=== PATIENT | male | born 1945 | race Caucasian/White ===

== ENCOUNTER 2017-07-26 12:28 | Outpatient (CLI) | payer MEDICARE, BC ==
--- NOTE | 2017-07-26 14:57 | MRI ---
MR OF THE RIGHT KNEE WITHOUT CONTRAST: Indication: Right knee pain. Comparison: Right knee radiograph dated 06-26-17. FINDINGS: There is a small subchondral insufficiency fracture involving the medial femoral condyle measuring 1 .1 x 1.2 cm with diffuse edema within the medial femoral condyle. There is mild joint effusion. Ther e is scattered osteoarthrosis of the right knee, mild in severity. The ACL, PCL, MCL, and LCLC are i ntact. There is some intrinsic increased T2 signal seen within the substance of the lateral and medi al meniscus likely related to intrameniscal degeneration. The extensor mechanism is intact. There is a tiny Borden's cyst. IT band and popliteus appear within normal limits. IMPRESSION: 1. Subchondral insufficiency fracture with surrounding edema involving the medial femoral condyle. 2. Mild osteoarthrosis of the right knee. POS: [facility]
== END 2017-07-26 12:29 | disposition home or self-care (01) ==
LOC: SCSMRI 12:28
PROVIDERS: ATTEND Orthopaedic Surgery
DX: M25.561 Pain in right knee (principal); R60.0 Localized edema; M17.11 Unilateral primary osteoarthritis, right knee; S82.001A Unspecified fracture of right patella, initial encounter for closed fracture

== ENCOUNTER 2017-09-27 15:15 | Emergency (ER) | payer MEDICARE, BC ==
[2017-09-27] MEDS ORDERED: Lidocaine 1% (PF) 30 ML VIAL ONE (15:30)
--- NOTE | 2017-09-27 15:46 | RAD ---
THREE VIEWS OF THE RIGHT THUMB 09/27/17 COMPARISON: None. HISTORY: Right thumb injury with deep cut. FINDINGS: Three views of the right thumb shows no evidence of acute fracture or dislocation. No radiopaque fore ign body is seen. Mild degenerative changes are seen in the interphalangeal joint of the thumb. IMPRESSION: No evidence of acute osseous abnormality. POS: [facility]
[2017-09-27] MEDS ORDERED: Bacitracin Zinc 1 Packet ONE (16:20)
== END 2017-09-27 16:32 | disposition home or self-care (01) ==
LOC: ERS 15:15
DX: S61.012A Laceration without foreign body of left thumb without damage to nail, initial encounter (principal); E11.9 Type 2 diabetes mellitus without complications; E78.2 Mixed hyperlipidemia; I11.0 Hypertensive heart disease with heart failure; I50.9 Heart failure, unspecified; F32.9 Major depressive disorder, single episode, unspecified; Z87.891 Personal history of nicotine dependence; Z79.4 Long term (current) use of insulin; Z79.899 Other long term (current) drug therapy; W27.0XXA Contact with workbench tool, initial encounter
CPT/HCPCS: 12002; J2001

== ENCOUNTER 2017-10-06 11:25 | Emergency (ER) | payer MEDICARE, BC | END 2017-10-06 12:58 | disposition home or self-care (01) | LOC: SCSER 11:25 | DX: S61.011D Laceration without foreign body of right thumb without damage to nail, subsequent encounter (principal); I11.0 Hypertensive heart disease with heart failure; I50.9 Heart failure, unspecified; E11.9 Type 2 diabetes mellitus without complications; E78.2 Mixed hyperlipidemia; F32.9 Major depressive disorder, single episode, unspecified; Z85.828 Personal history of other malignant neoplasm of skin; Z87.891 Personal history of nicotine dependence; X58.XXXD Exposure to other specified factors, subsequent encounter | CPT/HCPCS: 87070; 87077; 87186; 87205; 99283 ==

== ENCOUNTER 2018-05-16 16:46 | Emergency (ER) | payer MEDICARE, BC ==
[2018-05-16] MEDS ORDERED: Adacel (T-DAP) 0.5 ML VIAL ONE (17:24)
[2018-05-16] MEDS ORDERED: Lidocaine 1% PF 5 ML VIAL ONE ×2 (17:24→18:38)
[2018-05-16] MEDS ORDERED: Bacitracin Zinc 1 Packet ONE ×2 (17:24→20:05)
--- NOTE | 2018-05-16 18:18 | RAD ---
LEFT INDEX FINGER THREE VIEWS: 05/16/18 HISTORY: Injury, finger laceration. FINDINGS/IMPRESSION: There are degenerative changes most prominent in the DIP joint. No acute fracture or dislocation is s een. Tiny radiopaque densities in the soft tissues of the distal finger medially at the level of the phalanx. The possibility of these representing foreign bodies cannot be completely excluded. POS: [facility]
== END 2018-05-16 20:35 | disposition home or self-care (01) ==
LOC: ERS 16:46
DX: S61.211A Laceration without foreign body of left index finger without damage to nail, initial encounter (principal); E11.9 Type 2 diabetes mellitus without complications; E78.2 Mixed hyperlipidemia; I11.0 Hypertensive heart disease with heart failure; I10 Essential (primary) hypertension; E66.9 Obesity, unspecified; F32.9 Major depressive disorder, single episode, unspecified; Z87.891 Personal history of nicotine dependence; W26.8XXA Contact with other sharp object(s), not elsewhere classified, initial encounter
CPT/HCPCS: 12002; 90471; 90715; J2001

== ENCOUNTER 2018-11-18 08:47 | Emergency (ER) | payer MEDICARE, BC ==
[2018-11-18] MEDS ORDERED: Bacitracin Zinc 1 Packet ONE (09:38)
[2018-11-18] MEDS ORDERED: Bacitracin Zinc Ointment 30 gm TUBE ONE (09:38)
== END 2018-11-18 09:51 | disposition home or self-care (01) ==
LOC: SCSER 08:47
DX: S60.812A Abrasion of left wrist, initial encounter (principal); E11.9 Type 2 diabetes mellitus without complications; E78.5 Hyperlipidemia, unspecified; I11.0 Hypertensive heart disease with heart failure; I50.9 Heart failure, unspecified; E66.9 Obesity, unspecified; F32.9 Major depressive disorder, single episode, unspecified; Z87.891 Personal history of nicotine dependence; W26.9XXA Contact with unspecified sharp object(s), initial encounter
CPT/HCPCS: 99282

== ENCOUNTER 2021-11-12 08:56 | Outpatient (CLI) | payer MEDICARE, BC | END 2021-11-12 08:57 | disposition home or self-care (01) | LOC: BICULT 08:56 | PROVIDERS: ATTEND Family Medicine | DX: E04.1 Nontoxic single thyroid nodule (principal) | CPT/HCPCS: 76536 ==

== ENCOUNTER 2022-12-27 07:14 | Outpatient (CLI) | payer MEDICARE, BC | END 2022-12-27 07:15 | disposition home or self-care (01) | LOC: BICULT 07:14 | PROVIDERS: ATTEND Otolaryngology Plastic Surgery within the Head & Neck | DX: E04.1 Nontoxic single thyroid nodule (principal) | CPT/HCPCS: 76536 ==

== ENCOUNTER 2023-12-26 10:35 | Outpatient (CLI) | payer MEDICARE, BC | END 2023-12-26 10:36 | disposition home or self-care (01) | LOC: BICULT 10:35 | PROVIDERS: ATTEND Otolaryngology Plastic Surgery within the Head & Neck | DX: E04.2 Nontoxic multinodular goiter (principal) | CPT/HCPCS: 76536 ==